=== PATIENT | male | born 1965 | race Caucasian/White ===

== ENCOUNTER → 2016-08-17 | Outpatient (CLI) | payer OTHER ==
[~2016-08-17] MED LIST: FENO160T PO; LSN20 PO; METF-384 PO
--- NOTE | 2016-08-17 09:56 | DIAGNOSTIC IMAGING REPORT ---
C-SPINE ROUTINE 4 OR 5 VIEWS CLINICAL HISTORY: NECK PAIN AFTER WORK INJURY COMPARISON STUDY: No previous studies for comparison. FINDINGS: There is nonspecific asymmetric prevertebral soft tissue widening is visualized in the lateral view. No fractures or subluxations are visualized on conventional radiographic imaging. There are degenerative changes most pronounced the C4-5 and C6-7 levels. There is right-sided foraminal encroachment at the C3-4 and C4-5 levels. IMPRESSION: 1. No fractures identified on conventional radiographic imaging 2. Nonspecific asymmetric prevertebral soft tissue widening. 3. Degenerative changes. Right-sided foraminal encroachment at the C3-4 and C4-5 levels. Electronically signed by: Sanjeev Narayan M.D. 08/17/2016 9:54 AM Dictated Date/Time: 08/17/2016 9:51 AM
== END | disposition home or self-care (01) ==
LOC: C.RAD1850 09:39
PROVIDERS: ATTEND Nurse Practitioner Family
DX: M54.2 Cervicalgia (principal); M48.02 Spinal stenosis, cervical region

== ENCOUNTER → 2016-08-19 | Outpatient (CLI) | payer OTHER ==
--- NOTE | 2016-08-19 16:51 | DIAGNOSTIC IMAGING REPORT ---
MRI CERVICAL WITHOUT CONTRAST CLINICAL HISTORY: Severe neck pain TECHNIQUE: Sagittal and axial T1, T2 and STIR images were obtained. COMPARISON STUDY: Conventional radiographic study dated 08/17/2016 There are no suspicious areas of marrow replacement. No intrinsic cervical cord lesions are visualized. C2-3: There is no evidence of disc bulge or focal herniation. There is no spinal or foraminal stenosis. C3-4: There is a circumferential disc bulge. There is mild spinal stenosis. There is bilateral foraminal narrowing C4-5: There is no evidence of disc bulge or focal herniation. There is no evidence of spinal stenosis. There is right-sided foraminal narrowing. C5-6 :There are no disc bulges or focal herniations. There is no spinal or foraminal stenosis. C6-7: There is a moderate right foraminal disc protrusion with secondary foraminal narrowing. C7-T1: There is no evidence of disc bulge or focal herniation. There is no evidence of spinal or foraminal stenosis. IMPRESSION: 1. Moderate multilevel spondylitic changes 2. Mild spinal stenosis at the C3-4 level 3. Right foraminal disc protrusion the C6-7 level with secondary foraminal narrowing 4. Bilateral foraminal narrowing at the C3-4 level, and right-sided foraminal narrowing the C4-5 level. Electronically signed by: Sanjeev Narayan M.D. 08/19/2016 4:49 PM Dictated Date/Time: 08/19/2016 4:44 PM
== END | disposition home or self-care (01) ==
LOC: C.MRI 16:04
PROVIDERS: ATTEND Nurse Practitioner Family
DX: M54.2 Cervicalgia (principal); M47.812 Spondylosis without myelopathy or radiculopathy, cervical region; M50.20 Other cervical disc displacement, unspecified cervical region; M48.02 Spinal stenosis, cervical region

== ENCOUNTER → 2017-04-19 | Outpatient (CLI) | payer OTHER ==
[2017-04-19 18:28] LABS: HEMATOCRIT 46.4 % (42-52); MEAN CELL VOLUME 85.6 fL (80-100); MEAN CORPUSCULAR HEMOGLOBIN 31.5 pg (25-34); MEAN CORPUSCULAR HGB CONC 36.9 g/dl (32-36); MEAN PLATELET VOLUME 9.9 fL (7.4-10.4); PLATELET COUNT 180 K/uL (130-400); RED BLOOD COUNT 5.42 M/uL (4.7-6.1)
[2017-04-19 18:39] LABS: ALT/SGPT 38 U/L (12-78); AST/SGOT 15 U/L (15-37); BLOOD UREA NITROGEN 13 mg/dl (7-18); BUN/CREATININE RATIO 13.9 (10-20); CALCIUM 9.3 mg/dl (8.5-10.1); CARBON DIOXIDE 26 mmol/L (21-32); CHLORIDE 103 mmol/L (98-107); CREATININE 0.91 mg/dl (0.60-1.40); GLUCOSE 149 mg/dl (70-99); POTASSIUM 3.6 mmol/L (3.5-5.1); SODIUM 137 mmol/L (136-145)
[2017-04-19 18:41] LABS: ALB/GLOB RATIO 1.6 (0.9-2); ALKALINE PHOSPHATASE 51 U/L (45-117)
[2017-04-19 21:31] LABS: EOSINOPHIL % 0.9 %; LYMPH ABS # 2.97 K/uL (1.2-3.4); LYMPHOCYTE % 41.2 %; MDIFF REQUEST Y; MYELOCYTE % 0.9 %; NEUTROPHILS % 52.6 %
[2017-04-20 07:54] LABS: ESTIMATED AVERAGE GLUCOSE 192 mg/dl; HA1C FLAG Normal (Normal)
== END | disposition home or self-care (01) ==
LOC: C.LABMFLN 16:05
PROVIDERS: ATTEND Orthopaedic Surgery
DX: Z01.818 Encounter for other preprocedural examination (principal); Z01.812 Encounter for preprocedural laboratory examination; E11.9 Type 2 diabetes mellitus without complications; E78.5 Hyperlipidemia, unspecified; M48.02 Spinal stenosis, cervical region